=== PATIENT | female | born 1930 | race Caucasian/White ===

== ENCOUNTER 2016-10-04 18:16 | Emergency (ER) | payer MEDICARE, OTHER ==
[2016-10-04] MEDS ORDERED: LIDOCAINE 1%-EPI 1:100000 20 ML MDV ONE (18:53)
[2016-10-04] MEDS ORDERED: LIDOCAINE 2%-EPI 1:100000 20 ML MDV SUBQ STA (18:53)
[2016-10-04] MEDS ORDERED: ACETAMINOPHEN 325 MG TABLET PO STA (19:21)
[2016-10-04] MEDS ORDERED: ACETAMINOPHEN 325 MG TABLET PO ONE (19:31)
== END 2016-10-04 20:17 | disposition home or self-care (01) ==
DX: S52.532A Colles' fracture of left radius, initial encounter for closed fracture (principal); S52.602A Unspecified fracture of lower end of left ulna, initial encounter for closed fracture; W01.0XXA Fall on same level from slipping, tripping and stumbling without subsequent striking against object, initial encounter; R03.0 Elevated blood-pressure reading, without diagnosis of hypertension; Z87.891 Personal history of nicotine dependence
CPT/HCPCS: 25605; 73110; 99283; A9270

== ENCOUNTER 2016-10-08 09:56 | Day surgery (SDC) | payer MEDICARE, OTHER ==
[~2016-10-08 09:56] MED LIST: ceFAZolin 2 GM/50 ML 50 ML IV ONE
[2016-10-08] MEDS ORDERED: LACTATED RINGERS 1,000 ML IV ONE ×2 (10:12→17:33)
[2016-10-08] MEDS ORDERED: BUPIVACAINE 0.25% PF 10 ML VIAL SUBQ ONE ×2 (12:09→13:14)
[2016-10-08] MEDS ORDERED: PROPOFOL 200 MG/20 ML VIAL IVP ONE (12:35)
[2016-10-08] MEDS ORDERED: GLYCOPYRROLATE 1 MG/5 ML VIAL IVP ONE (12:35)
[2016-10-08] MEDS ORDERED: LIDOCAINE-MPF 2% 5 ML VIAL IM ONE (12:35)
[2016-10-08] MEDS ORDERED: DEXAMETHASONE 4 MG/ML VIAL IVP ONE (12:35)
[2016-10-08] MEDS ORDERED: ONDANSETRON 4 MG/2 ML VIAL IVP ONE (12:35)
[2016-10-08] MEDS ORDERED: MIDAZOLAM 2 MG/2 ML VIAL IVP ONE (12:35)
[2016-10-08] MEDS ORDERED: fentaNYL 100 MCG/2 ML VIAL IVP ONE (12:35)
[2016-10-08] MEDS ORDERED: ONDANSETRON 4 MG/2 ML VIAL ONE ×2 (14:15→15:32)
[2016-10-08] MEDS ORDERED: fentaNYL 100 MCG/2 ML VIAL ONE (14:20)
[2016-10-08] MEDS ORDERED: HYDROmorphone 1 MG/ML SYRINGE ONE (14:55)
[2016-10-08] MEDS ORDERED: KETOROLAC 15 MG/ML VIAL ONE (14:57)
[2016-10-08] MEDS ORDERED: ACETAMINOPHEN 1,000 MG/100 ML 100 ML IV ONE (15:38)
== END 2016-10-08 21:50 | disposition home or self-care (01) ==
PROC: 0PSJ04Z Reposition Left Radius with Internal Fixation Device, Open Approach (ICD-10-PCS; principal; 2016-10-08 10:45)
DX: S52.572A Other intraarticular fracture of lower end of left radius, initial encounter for closed fracture (principal); S52.602A Unspecified fracture of lower end of left ulna, initial encounter for closed fracture; W01.0XXA Fall on same level from slipping, tripping and stumbling without subsequent striking against object, initial encounter; I10 Essential (primary) hypertension; Z79.82 Long term (current) use of aspirin; Z96.643 Presence of artificial hip joint, bilateral; Z90.710 Acquired absence of both cervix and uterus
CPT/HCPCS: 25608; 73110; 80048; 85025; C1713; J0131; J0690; J1170; J7120